=== PATIENT | female | born 2000 | race Caucasian/White ===

== ENCOUNTER 2019-05-15 05:36 | Emergency (ER) | payer BC ==
[2019-05-15] MEDS ORDERED: Ondansetron INJ* 2 MG/ML VIAL IV ONE ×2 (06:02→08:34)
[2019-05-15] MEDS ORDERED: Ketorolac INJ* 30 MG/ML 1 ML VIAL IV PUSH ONE (06:03)
[2019-05-15] MEDS ORDERED: NS 0.9% 1000 ML** 1,000 ML IV ONE (06:03)
--- NOTE | 2019-05-15 06:04 | ED ---
Complex/Multi-Sys Presentation - HPI Summary HPI Summary: Patient is a 18-year-old female who presents to the ER for right sided back pain , chest pain and vomiting that started last night. Pt. denies past medical hx. Notes she had a school formal last night and had a few drinks and smoked marijuana and then started to feel unwell. Pt. denies diarrhea, urinary sxs, fever. Sxs are moderate in severity. Movement makes sxs worse. Nothing makes sxs better. - History Of Current Complaint Chief Complaint: EDNauseaVomitDiarrh Time Seen by Provider: 05/15/19 05:53 Hx Obtained From: Patient - Allergies/Home Medications Allergies/Adverse Reactions: Allergies Allergy/AdvReac Type Severity Reaction Status Date / Time pineapple Allergy Tingling Verified 05/15/19 06:17 Home Medications: Home Medications Amoxicillin PO (*) [Amoxicillin 875 MG (*)] 875 mg PO BID 05/15/19 [History Confirmed 05/15/19] Azithromycin TAB* [Zithromax TAB (Z-TITA) 250 mg #6 tabs] 250 mg PO DAILY [History Confirmed 05/15/19] Benzonatate CAP* [Tessalon 100 MG CAP*] 100 - 200 mg PO Q8H PRN 05/15/19 [ History Confirmed 05/15/19] Ipratropium/Albuterol Sulfate [Iprat-Albut 0.5-3(2.5) mg/3 ml] 1 unit INH Q6H PRN 05/15/19 [History Confirmed 05/15/19] LoraTADine TAB(NF) [Claritin 10 MG TAB(NF)] 10 mg PO BEDTIME 05/15/19 [History Confirmed 05/15/19] Multivitamins/Minerals TAB* [Theragran/minerals TAB*] 1 tab PO DAILY 05/15/19 [ History Confirmed 05/15/19] predniSONE TAB* [Deltasone 20 MG TAB*] 20 mg PO DAILY 05/15/19 [History Confirmed 05/15/19] PMH/Surg Hx/FS Hx/Imm Hx Previously Healthy: Yes Infectious Disease History: No Infectious Disease History: Denies: Traveled Outside the [place] in Last 30 Days - Family History Known Family History: Positive: Non-Contributory - Social History Occupation: Student Lives: Dormitory/Roommates Alcohol Use: Occasionally Substance Use Type: Reports: Marijuana Hx Tobacco Use: No Review of Systems Constitutional: Negative Negative: Fever ENT: Negative Positive: Chest Pain Positive: Shortness Of Breath, Cough Positive: Abdominal Pain, Vomiting, Nausea. Negative: Diarrhea Genitourinary: Negative Negative: dysuria Musculoskeletal: Negative Skin: Negative Neurological: Negative All Other Systems Reviewed And Are Negative: Yes Physical Exam Triage Information Reviewed: Yes Vital Signs On Initial Exam: Initial Vitals Temp Pulse Resp BP Pulse Ox 97.0 F 128 16 91/79 99 05/15/19 05:40 05/15/19 05:40 05/15/19 05:40 05/15/19 05:40 05/15/19 05:40 Vital Signs Reviewed: Yes Appearance: Positive: Pain Distress - Pt. sitting up in bed holding right side. Appears in pain but nontoxic. Skin: Positive: Warm, Dry Head/Face: Positive: Normal Head/Face Inspection Eyes: Positive: Normal, EOMI, [place] Neck: Positive: Supple Respiratory/Lung Sounds: Positive: Other - Diminished breath sounds on right. Diffuse pain to right side of chest wall. Cardiovascular: Positive: Normal, RRR Abdomen Description: Positive: Nontender, Soft Musculoskeletal: Positive: Normal, Strength/ROM Intact Neurological: Positive: Normal, CN Intact II-III Psychiatric: Positive: Affect/Mood Appropriate Procedures - Sedation Patient Received Moderate/Deep Sedation with Procedure: No Diagnostics - Vital Signs Vital Signs Temp Pulse Resp BP Pulse Ox 05/15/19 05:40 97.0 F 128 16 91/79 99 - Laboratory Result Diagrams: 05/15/19 06:18 05/15/19 06:18 Lab Statement: Any lab studies that have been ordered have been reviewed, and results considered in the medical decision making process. - Radiology CXR: First Chest Tube Radiology Interpretation Completed By: Radiologist Summary of Radiographic Findings: Persistent large right pneumothorax. Right chest tube in place. Dr. Lazaro has reviewed this radiology report. CXR: Second Chest Tube Radiology Interpretation Completed By: Radiologist Summary of Radiographic Findings: THE RIGHT LUNG IS REEXPANDED WITH PROBABLE PULMONARY EDEMA. THERE IS FOCAL AIRSPACE OPACIFICATION RIGHT MIDLUNG ZONE. THE RIGHT THORACOTOMY CHEST TUBES ORIENTED TOWARDS THE APEX OF THE RIGHT HEMITHORAX. Dr. Lazaro has reviewed this radiology report. - CT Chest CT Interpretation Completed By: Radiologist Summary of CT Findings: Right chest tube is in place. Subcutaneous emphysema from chest tube placement with reexpansion of the right lung field with minimal residual pneumothorax. There is airspace disease noted in the right midlung field which may represent atelectasis. No gross evidence of esophageal perforation is noted. No rib fractures are identified. Dr. Lazaro has reviewed this radiology report. Re-Evaluation - Re-Evaluation First Eval Re-Evaluation Time: 07:29 Comment: Discussed chest tube placement procedure with patient. Discussed risks and benefits and patient consents to have procedure. Discussed plan of care with patient's mother over the phone, who also agrees with plan. Second Eval Re-Evaluation Time: 09:41 Comment: Discussed need for transfer in case of bleeding and need for cardiothoracic surgery with patient. Patient understands and agrees with plan for transfer. Complex Multi-Symp Course/Dx Course Of Treatment: Pt. with right sided pain, vomiting. Afebrile. Tachycardic. O2 100% on RA. Pt. started on IV fluids. Labs, CXR, and ecg ordered. CXR shows large right sided pneumothorax. ECG done at 0626 shows a sinus rhythm of 91bpm, normal axis, flipped t waves in inferior leads. 0632: Case discussed with oncall surgery, Dr. Traore. He would like ED attedning to place chest tube if possible and he will be in to see pt. 0705: Pt. examined by Dr. Lazaro. Please see Dr. Lazaro's progress note for chest tube procedure and disposition. Pt. examined by Dr. Parish, surgery in ED. Pt. ultimately is being transferred to [facility] for CT surgery. - Diagnoses Provider Diagnoses: Hemopneumothorax Discharge ED - Sign-Out/Discharge Documenting (check all that apply): Patient Departure - Discharge Plan Condition: Stable Disposition: TRANS HIGHER LVL OF CARE FAC Referrals: Bonifacio Bolanos MD [Primary Care Provider] - - Billing Disposition and Condition Condition: STABLE Disposition: Trans Higher Lvl of Care Fac - Attestation Statements Provider Attestation: I saw the pt along w the midlevel provider and agree with their documentation as well as my documentation noted in my short note. I assumed care of this patient independently at approximately 7am. Pt was eventually transferred to [place] given [facility] [place] however unlikely it might be is certainly possible. Status of Scribe Document: Ready
[2019-05-15 06:23] LABS: ABS Lymphocytes 0.7 10^3/ul (1.0-4.8); ABS Monocytes 0.3 10^3/ul (0-0.8); ABS Neutrophils 10.2 10^3/ul (1.5-7.7); Hematocrit 33 % (35-47); Hemoglobin 11.5 g/dL (12.0-16.0); Lymphocyte % 5.8 %; Mean Corpuscular HGB Conc 35 g/dL (31-36); Mean Corpuscular Hemoglobin 30 pg (27-31); Mean Corpuscular Volume 87 fL (80-97); Mean Platelet Volume 8.2 fL (7.4-10.4); Platelet Count 218 10^3/uL (150-450); Red Blood Count 3.86 10^6 /uL (3.70-4.87); Red Cell Distribution Width 13 % (10-15); White Blood Count 11.2 10^3/uL (3.5-10.8)
[2019-05-15] MEDS ORDERED: Morphine 4 MG/ML VIAL (1 ml) 4 MG/ML VIAL IV ONE (06:35)
[2019-05-15 06:45] LABS: ALT 11 U/L (7-52); AST 13 U/L (13-39); Albumin/Globulin Ratio 1.6 (1-3); Alkaline Phosphatase 55 U/L (34-104); Anion Gap 10 mmol/L (2-11); BUN/Creatinine Ratio 16.2 (8-20); Blood Urea Nitrogen 12 mg/dL (6-24); C Reactive Protein 2.58 mg/L (<8.01); CO2 Carbon Dioxide 21 mmol/L (22-32); Calcium 8.6 mg/dL (8.6-10.3); Chloride 106 mmol/L (101-111); EGFR African American 121.1 (>60); EGFR Non-African American 100.1 (>60); Globulin 2.5 g/dL (2-4); Glucose 143 mg/dL (70-100); Potassium 4.7 mmol/L (3.5-5.0); Sodium 137 mmol/L (135-145); Total Protein 6.5 g/dL (6.4-8.9)
[2019-05-15 06:51] LABS: HCG Pregnancy < 0.60 mIU/mL
[2019-05-15] MEDS ORDERED: Iohexol 300* (CONTRAST) 10 ML SDV IV ONE (07:22)
[2019-05-15] MEDS ORDERED: Lidocaine 2% w/ EPI 1:200,000* 20 ML SDV VIAL ONE ×2 (07:26→08:03)
--- NOTE | 2019-05-15 07:32 | ED ---
Progress - Progress Note Progress Note: This patient is a 18 y/o F who presents to [facility] with a chief complaint of intermittent chest pain since yesterday becoming constant last night. Patient came in the ER as she was unable to sleep due to the pain. Patient received a CXR here which showed pneumothorax. Patient reports she uses marijuana, but has not been smoking it and taking edibles instead. Patient however reports she was vomiting throughout the day yesterday. Patient is an athlete, previously rowing crew and currently playing volleyball. Patient is presented to me by FIORELLA Garcia, for chest tube placement. Re-Evaluation - Re-Evaluation First Eval Re-Evaluation Time: 07:29 Comment: Discussed chest tube placement procedure with patient. Discussed risks and benefits and patient consents to have procedure. Discussed plan of care with patient's mother over the phone, who also agrees with plan. Second Eval Re-Evaluation Time: 09:41 Comment: Discussed need for transfer in case of bleeding and need for cardiothoracic surgery with patient. Patient understands and agrees with plan for transfer. Course/Dx - Course Course Of Treatment: This patient is a 18 y/o F who presents to [facility] with a chief complaint of intermittent chest pain since yesterday becoming constant last night. Patient came in the ER as she was unable to sleep due to the pain. Patient received a CXR here which showed pneumothorax. Patient reports she uses marijuana, but has not been smoking it and taking edibles instead. Patient however reports she was vomiting throughout the day yesterday. Patient is an athlete, previously rowing crew and currently playing volleyball. Patient is presented to me by FIORELLA Garcia, for chest tube placement. Given the patient 's vomiting, my concern is also for an esophageal rupture. If the patient has a esophageal rupture, she will need to be transferred for cardiothoracic surgery. Either way, however, the patient requires a chest tube, so I will place the chest tube to alleviate the patient's symptoms before sending her to CT to rule- out esophageal rupture. Discussed chest tube benefits and risks with patient and patient's mother, who consent to have chest tube placed. I initially attempted to place a Bj-cook catheter, however, it tristan blood immediately after removal of the needle. Thus, I withdrew the Bj-cook catheter and inserted a formal 32cm Portuguese chest tube. Upon placement of the tube at 0824 I heard the anguiano of air and the bleeding stopped. Patient tolerated the procedure well and reports feeling better after the procedure. I gave the patient one unit of O-negative blood transfusion. After chest tube placement, discussed patient case with Dr. Parish at 0832, general surgeon, who stated patient needs to be transferred to [facility] for cardiothoracic surgery and observation. At 0903 , discussed with Dr. Schultz, radiologist, who agrees that the initial Bj- cook catheter may have buried itself in the lung unluckily, however it cannot be confirmed without multiple film views. He reports that in the CXR after the Portuguese tube placement, the chest tube is placed and the lung is re-expanded. CXR revealed: THE RIGHT LUNG IS REEXPANDED WITH PROBABLE PULMONARY EDEMA. THERE IS FOCAL AIRSPACE OPACIFICATION RIGHT MIDLUNG ZONE. THE RIGHT THORACOTOMY CHEST TUBES ORIENTED TOWARDS THE APEX OF THE RIGHT HEMITHORAX. At 0920, transfer center reports [facility] does not have any beds. At 0942, discussed patient case with Dr. Desmond Alfred, cardiothoracic surgeon at [facility], who accepted the patient for transfer. Patient will be transferred to the medical surgical department at [facility], accepted by Dr. Alfred , with diagnosis of hemopneumothorax. CT chest revealed: Right chest tube is in place. Subcutaneous emphysema from chest tube placement with reexpansion of the right lung field with minimal residual pneumothorax. There is airspace disease noted in the right midlung field which may represent atelectasis. No gross evidence of esophageal perforation is noted. No rib fractures are identified. Discussed plan with patient. Patient understands and agrees with this plan. Attending Attestation: 18-year-old female presenting her department seen by the physician processing assistant initially appendectomy at approximately 6:55 AM with the onset of my shift with a complaint of chest pain and trouble breathing found to have spontaneous pneumothorax to her right lung. Chest x-ray completed showing a confirmed diagnosis of a nearly completely collapsed right lung and no evidence of external shift or pneumomediastinum. However the story of her present complaint was that her chest pain started after an episode of violent vomiting as she describes it and not immediately secondary to coughing which led me to be concerned somewhat that she may have had an esophageal nidus of clear leakage rather than pulmonary de nayeli. The fact that she did have a pneumothorax I elected to attempt Bj cook catheter to evacuate the pneumothorax however after placement of the Bj cook there was immediate to cayla blood with no significant removal of air. Chest x-ray showing that the Bj cook is lying in the center of the chest cavity not perfectly clear whether the tip of the Bj cook was sitting within the lung parenchyma causing the bleeding versus possible intercostal vessel bleed. I did make a particular care to avoid the underside of the above and fish the Grundy catheter over the rib below making my suspicion of an intercostal vessel bleed less likely however not perfectly clear. Thank that she did have 400 cc of blood out immediately I elected to remove the Grundy catheter and place a formal 32 Portuguese chest tube which immediately evacuated air followed by which I completed chest x-ray showing reexpansion of the lung and over the next approximately 5 hours has had minimal blood out approximately 150 cc of blood over 5 hours. It seems that hemostasis has newly been itchy. Given the fact that she does have hemopneumothorax she may require cardiothoracic surgery however less likely. Given the fact that this is a possibility again less likely, she will require consultation in the location where cars risk surgeries available. [facility] has accepted her to their service under the cardiothoracic team. Patient is remaining with stable at this time. Heart rate and blood pressure remained normal heart rate in the 80s blood pressure 110 over 60s. She is otherwise stable for transfer. EMS is currently at the bedside packaging the patient for transfer. She'll be kept on low wall suction to the chest tube on a Pleur-evac. - Diagnoses Provider Diagnoses: Hemopneumothorax - Provider Notifications Discussed Care Of Patient With: Jaguar Parish Time Discussed With Above Provider: 08:32 Instructed by Provider To: Transfer - After chest tube placement, discussed patient case with Dr. Parish, general surgeon, who stated patient needs to be transferred to [facility] for cardiothoracic surgery. At 0903, discussed with Dr. Schultz, radiologist, who agrees that the initial Bj-cook catheter may have buried itself in the lung unluckily, however it cannot be confirmed without multiple film views. He reports that in the CXR after the Portuguese tube placement , the chest tube is placed and the lung is re-expanded. At 0920, transfer center reports [facility] does not have any beds. At 0942, discussed patient case with Dr. Desmond Alfred, cardiothoracic surgeon at [place], who accepted the patient for transfer. - Critical Care Time Critical Care Time: 30-74 min - 60 min Discharge ED - Sign-Out/Discharge Documenting (check all that apply): Receiving Sign-Out Receiving patient FROM: Adis L[facility] - Discharge Plan Condition: Stable Disposition: TRANS HIGHER LVL OF CARE FAC Referrals: Bonifacio Bolanos MD [Primary Care Provider] - - Billing Disposition and Condition Condition: STABLE Disposition: Trans Higher Lvl of Care Fac - Attestation Statements Document Initiated by Scribe: Yes Documenting Scribe: Per [place] Provider For Whom Scribe is Documenting (Include Credential): Hayden Lazaro MD Scribe Attestation: Per [place], scribed for Hayden Lazaro MD on 05/15/19 at 1518. Scribe Documentation Reviewed: Yes Provider Attestation: The documentation as recorded by the scribePer accurately reflects the service I personally performed and the decisions made by me, Hayden Lazaro MD Status of Scribe Document: Viewed Procedures - Sedation Patient Received Moderate/Deep Sedation with Procedure: No - Chest Tube Right Upper Anterior Chest Tube Location: fifth interspace Size of Portuguese Tube (cm): 32 Chest Tube Procedure: betadine prep, sterile drapes applied, sterile dressing applied Anesthesia: 1% Lidocaine w/ Epi Anguiano of Air [place]: Yes Number of Attempts: 2 - Initially used Bj-cook catheter, which tristan blood, so I removed the Bj-cook catheter and used a 32cm Portuguese tube. Upon placement of Portuguese tube, blood stopped flowing and anguiano of air was heard. Time of Successful Intubation: 08:24 Tube Sutured to Skin: Yes Post Procedure CXR?: Yes Diagnostics - Vital Signs Vital Signs Temp Pulse Resp BP Pulse Ox 05/15/19 07:00 96 99 05/15/19 06:53 91 113/60 99 05/15/19 06:52 96 102/61 100 05/15/19 06:49 22 05/15/19 06:05 100 102/67 98 05/15/19 06:00 106 98 05/15/19 05:54 93 111/70 97 05/15/19 05:52 103 91 05/15/19 05:40 97.0 F 128 16 91/79 99 - Laboratory Lab Results: Lab Results 05/15/19 05/15/19 05/15/19 Range/Units 06:18 06:18 06:18 WBC 11.2 H (3.5-10.8) 10^3/uL RBC 3.86 (3.70-4.87) 10^6 /uL Hgb 11.5 L (12.0-16.0) g/dL Hct 33 L (35-47) % MCV 87 (80-97) fL MCH 30 (27-31) pg MCHC 35 (31-36) g/dL RDW 13 (10-15) % Plt Count 218 (150-450) 10^3/uL MPV 8.2 (7.4-10.4) fL Neut % (Auto) 91.4 % Lymph % (Auto) 5.8 % [place] % (Auto) 2.6 % Eos % (Auto) 0.0 % Baso % (Auto) 0.2 % Absolute Neuts (auto) 10.2 H (1.5-7.7) 10^3/ul Absolute Lymphs (auto) 0.7 L (1.0-4.8) 10^3/ul Absolute Monos (auto) 0.3 (0-0.8) 10^3/ul Absolute Eos (auto) 0.0 (0-0.6) 10^3/ul Absolute Basos (auto) 0.0 (0-0.2) 10^3/ul Absolute Nucleated RBC 0.0 10^3/ul Nucleated RBC % 0.0 Sodium 137 (135-145) mmol/L Potassium 4.7 (3.5-5.0) mmol/L Chloride 106 (101-111) mmol/L Carbon Dioxide 21 L (22-32) mmol/L Anion Gap 10 (2-11) mmol/L BUN 12 (6-24) mg/dL Creatinine 0.74 (0.51-0.95) mg/dL Est GFR ( Amer) 121.1 (>60) Est GFR (Non-Af Amer) 100.1 (>60) BUN/Creatinine Ratio 16.2 (8-20) Glucose 143 H (70-100) mg/dL Calcium 8.6 (8.6-10.3) mg/dL Total Bilirubin 0.80 (0.2-1.0) mg/dL AST 13 (13-39) U/L ALT 11 (7-52) U/L Alkaline Phosphatase 55 (34-104) U/L C-Reactive Protein 2.58 (<8.01) mg/L Total Protein 6.5 (6.4-8.9) g/dL Albumin 4.0 (3.2-5.2) g/dL Globulin 2.5 (2-4) g/dL Albumin/Globulin Ratio 1.6 (1-3) Beta HCG, Quant < 0.60 mIU/mL Blood Type O Positive Antibody Screen Pending Crossmatch See Detail Result Diagrams: 05/15/19 06:18 05/15/19 06:18 Lab Statement: Any lab studies that have been ordered have been reviewed, and results considered in the medical decision making process. - Radiology CXR: First Chest Tube Radiology Interpretation Completed By: Radiologist Summary of Radiographic Findings: Persistent large right pneumothorax. Right chest tube in place. Dr. Lazaro has reviewed this radiology report. CXR: Second Chest Tube Radiology Interpretation Completed By: Radiologist Summary of Radiographic Findings: THE RIGHT LUNG IS REEXPANDED WITH PROBABLE PULMONARY EDEMA. THERE IS FOCAL AIRSPACE OPACIFICATION RIGHT MIDLUNG ZONE. THE RIGHT THORACOTOMY CHEST TUBES ORIENTED TOWARDS THE APEX OF THE RIGHT HEMITHORAX. Dr. Lazaro has reviewed this radiology report. - CT Chest CT Interpretation Completed By: Radiologist Summary of CT Findings: Right chest tube is in place. Subcutaneous emphysema from chest tube placement with reexpansion of the right lung field with minimal residual pneumothorax. There is airspace disease noted in the right midlung field which may represent atelectasis. No gross evidence of esophageal perforation is noted. No rib fractures are identified. Dr. Lazaro has reviewed this radiology report.
[2019-05-15] MEDS: fentaNYL* 50 MCG/ML 2 ML VIAL (100 MCG VIAL) IV SLOW PU ONE ×2 (09:28→15:16)
[2019-05-15] MEDS ORDERED: Lactated Ringers 1000 ML Bag* 1,000 ML IV SCH (10:00)
[2019-05-15 11:44] LABS: Urine Appearance Clear; Urine Bilirubin Negative (Negative); Urine Blood Negative (Negative); Urine Color Yellow; Urine Glucose Negative (Negative); Urine Ketones 1+ (Negative); Urine Nitrite Negative (Negative); Urine Protein Negative (Negative); Urine Specific Gravity 1.053 (1.010-1.030); Urine Urobilinogen Negative (Negative)
[2019-05-15 14:57] VITALS: BP 110/58
[2019-05-15] MEDS ORDERED: fentaNYL* 50 MCG/ML 2 ML VIAL (100 MCG VIAL) ONE (15:11)
== END 2019-05-15 15:45 | disposition short-term general hospital (02) ==
LOC: ED 05:36
DX: J94.2 Hemothorax (principal); Z79.899 Other long term (current) drug therapy
CPT/HCPCS: 32551; 36415; 71045; 71260; 80053; 81003; 84702; 85025; 86140; 86850; 86900; 86901; 86922; 93005; 96361; 96374; 96375; 96376; 99285; J1885; J2270; J2405; J3010; P9040; Q9967